=== PATIENT | male | born 1995 | race Asian ===

== ENCOUNTER 2024-11-04 16:49 | Emergency (ER) | payer MEDICAID ==
[~2024-11-04] VITALS: Ht 165.1 cm; Wt 85.0 kg
[2024-11-04 17:01] VITALS: BP 125/72; PULSE 96; RESP 18; TEMP 97.5; O2SAT 97
[2024-11-04] MEDS ORDERED: AMOX-457 PO (18:10)
[2024-11-04] MEDS: PERTUSS(ACELL),DIPH,TET/PF 0.5 ML SYRINGE [ADULT] IM. ONE (18:23)
[2024-11-04] MEDS: AMOX TR/POT CLAV 875 MG/125 MG TABLET PO ONE (18:24)
== END 2024-11-04 18:30 | disposition home or self-care (01) ==
LOC: EMS 16:49
DX: S51.851A Open bite of right forearm, initial encounter (principal); W54.0XXA Bitten by dog, initial encounter; Y93.89 Activity, other specified; Y92.89 Other specified places as the place of occurrence of the external cause; Y99.8 Other external cause status
CPT/HCPCS: 90471; 90715; 99283